=== PATIENT | male | born 1970 | race Caucasian/White ===

== ENCOUNTER 2017-10-11 07:35 | Day surgery (SDC) | payer BC, SELFPAY ==
[2017-10-11] VITALS (13 sets, daily range): BP systolic 106–131; BP diastolic 71–92; PULSE 55–74; RESP 16–18; TEMP 36.6–36.8; O2SAT 95–100; BMI 34.0
[2017-10-11 08:12] LABS: Basophils % 0.4 % (0.1-2.0); Eosinophils # 0.2 K/mm3 (0.0-0.4); Eosinophils % 1.9 % (0.1-12.0); Hematocrit 43.8 % (42.0-52.0); Hemoglobin 14.7 g/dL (14.1-18.0); Lymphocytes # 2.7 K/mm3 (0.7-4.5); Lymphocytes % 30.9 K/mm3 (10-50); Mean Corpuscular HGB Conc 33.6 g/dL (31.8-35.4); Mean Corpuscular Hemoglobin 30.7 pg (27.0-31.2); Mean Corpuscular Volume 91.4 fl (80-94); Mean Platelet Volume 7.5 fl (7.4-10.4); Monocytes # 0.4 K/mm3 (0.1-1.0); Monocytes % 4.9 % (1.7-9.3); Neutrophils # 5.5 K/mm3 (1.8-7.8); Neutrophils % 61.9 % (37.0-80.0); Platelet Count 190 K/mm3 (142-424); Red Cell Distribution Width 13.3 % (11.5-17.5); White Blood Count 8.8 K/mm3 (4.8-10.8)
[2017-10-11 08:20] LABS: Anion Gap 10.7 mEq/L (5-15); Blood Urea Nitrogen 20 mg/dL (7-18); Carbon Dioxide 27 mmol/L (21.0-32.0); Chloride 106 mmol/L (98-107); Creatinine Clearance Estimated 156 mL/min (0-300); Creatinine,Serum 0.94 mg/dL (0.70-1.30); Estimated Glomerular Filt Rate 86 ml/min (>60); GFR (African American) 104 ML/MIN (>60); Glucose 97 mg/dL (74-106); Potassium 3.7 mmoL/L (3.5-5.1); Sodium 140 mmol/L (136-145)
--- NOTE | 2017-10-11 09:00 | IR_ITS ---
CARDIAC CATHETERIZATION DATE OF CATHETERIZATION:10/11/2017 10:12 AM PROCEDURES: 1. Left heart catheterization 2. Left ventriculogram 3. Selective coronary angiogram INDICATION FOR TEST: 1. Recent ST elevation myocardial infarction 2. Known coronary artery disease 3. Recurrent angina pectoris Informed consent was obtained prior to the procedure. COMPLICATIONS: None ESTIMATED BLOOD LOSS: Less than 10 ml. TECHNIQUE: One percent lidocaine used to anesthetize the right anterior aspect of the wrist. The right radial artery was accessed via the Seldinger technique. A 6 Divehi sheath was placed in the right radial artery. 2.5 mg of verapamil, 800 mcg of nitroglycerin and 5000 U Heparin were given through the arterial sheath. The trap catheter was also used to perform left heart catheterization and left ventriculography. At the end of the procedure the patient was transferred to the post-op holding area in stable condition for arterial sheath removal. ANGIOGRAPHIC RESULTS: 1. The left main artery normal 2. The left anterior descending artery is normal 3. The circumflex artery is a large dominant vessel and has proximal 30% stenoses with mild luminal irregularities in the large obtuse marginal artery 4. The right coronary artery is a nondominant yet still large vessel and has proximal 20% stenoses. A stent in the distal right coronary artery is widely patent with excellent proximal and distal transitioning. The stent supplies a small amount of distal myocardium 5. The SYED ventriculogram reveals normal 65% 6. The left ventricular end-diastolic pressure mildly elevated at 20 mmHg IMPRESSION: 1. Coronary artery disease as described above 2. Patent stent in the nondominant distal right coronary artery 3. Normal ejection fraction 4. Mildly elevated LVEDP PLAN: 1. Continue medical management 2. Evaluation of noncardiac chest pain
== END 2017-10-11 14:34 | disposition home or self-care (01) ==
LOC: CATHLAB 07:38
PROVIDERS: PCP Internal Medicine Adolescent Medicine; Visit Provider Internal Medicine
DX: I25.119 Atherosclerotic heart disease of native coronary artery with unspecified angina pectoris (principal); Z95.5 Presence of coronary angioplasty implant and graft; I11.9 Hypertensive heart disease without heart failure; R07.9 Chest pain, unspecified
CPT/HCPCS: 80048; 85025; 93458; 99152; C1725; C1769; J1644; Q9967

== ENCOUNTER → 2017-11-04 08:11 | Outpatient (POV) | payer BC, SELFPAY | PROVIDERS: PCP Internal Medicine Adolescent Medicine; Visit Provider Nurse Practitioner Acute Care | DX: Z00.00 Encounter for general adult medical examination without abnormal findings (principal) ==

== ENCOUNTER 2018-03-21 23:14 | Observation (INO) ==
[2018-03-21 23:36] LABS: Basophils # 0.1 K/mm3 (0-0.2); Basophils % 0.5 % (0.1-2.0); Eosinophils # 0.1 K/mm3 (0.0-0.4); Eosinophils % 0.9 % (0.1-12.0); Hematocrit 50.6 % (42.0-52.0); Hemoglobin 16.5 g/dL (14.1-18.0); Lymphocytes # 2.1 K/mm3 (0.7-4.5); Lymphocytes % 23.1 K/mm3 (10-50); Mean Corpuscular HGB Conc 32.6 g/dL (31.8-35.4); Mean Corpuscular Hemoglobin 29.5 pg (27.0-31.2); Mean Corpuscular Volume 90.3 fl (80-94); Mean Platelet Volume 7.8 fl (7.4-10.4); Monocytes # 0.5 K/mm3 (0.1-1.0); Neutrophils # 6.4 K/mm3 (1.8-7.8); Neutrophils % 70.3 % (37.0-80.0); Platelet Count 211 K/mm3 (142-424); Red Cell Distribution Width 12.8 % (11.5-17.5); White Blood Count 9.2 K/mm3 (4.8-10.8)
[2018-03-22] LABS: Alanine Aminotransferase 32 U/L (12-78); Albumin Level 3.8 gm/dL (3.4-5.0); Alkaline Phosphatase 71 U/L (46-116); Amylase 41 U/L (25-125); Anion Gap 7.8 mEq/L (5-15); Aspartate Amino Transferase 16 U/L (15-37); Bilirubin,Direct 0.1 mg/dL (0.0-0.2); Bilirubin,Indirect 0.5 mg/dL (0.0-0.9); Bilirubin,Total 0.6 mg/dL (0.2-1.0); Blood Urea Nitrogen 19 mg/dL (7-18); Carbon Dioxide 28 mmol/L (21.0-32.0); Chloride 109 mmol/L (98-107); Glucose 108 mg/dL (74-106); Lipase 145 u/L (73-393); Potassium 4.8 mmoL/L (3.5-5.1); Sodium 140 mmol/L (136-145); T4 (Thyroxine) 6.5 ug/dl (4.7-13.3); Thyroid Stimulating Hormone 1.56 uIU/ml (0.358-3.740); Total Protein,Serum 7.7 gm/dL (6.4-8.2)
--- NOTE | 2018-03-22 00:54 | Emergency Department Note ---
ED Disposition Clinical Impression: A-fib Qualifiers: Atrial fibrillation type: unspecified Qualified Code(s): I48.91 - Unspecified atrial fibrillation Disposition: Admitted As Inpatient Condition on Discharge: Good Referrals: Otoneil Asencio MD [Primary Care Provider] - - Critical Care Critical Care Time: No Attestation: On 03/21/18, the high probability of a clinically significant, sudden or life threatening deterioration of the following system(s) required my full and direct attention, intervention and personal management. The time I documented below is in addition to time spent performing reported procedures but includes the following listed in this critical care notation. Medical Decision Making - Medical Records Medical records reviewed: Yes: I reviewed the patient's medical records. - Jah Inquiry Pt receiving controlled substance: No Vital Signs: 03/21/18 23:15 03/21/18 23:45 03/22/18 00:19 Temperature 97.8 F Temperature Source Oral Pulse Rate [Right Radial] 134 H 95 H 92 H Respiratory Rate 18 16 14 Blood Pressure [Right Arm] 109/96 110/70 126/55 Blood Pressure Mean [Right Arm] 100 83 78 Blood Pressure Source [Right Arm] Automatic Cuff Automatic Cuff Automatic Cuff Blood Pressure Position [Right Arm] Sitting Sitting Sitting 02 Sat by Pulse Oximetry 96 96 95 Oxygen Delivery Method Room Air Room Air Room Air - Lab Data Lab results reviewed: Yes: I reviewed the patient's lab results. Lab Results 03/21/18 23:25: WBC 9.2, RBC 5.60, Hgb 16.5, Hct 50.6, MCV 90.3, MCH 29.5, MCHC 32.6, RDW 12.8, Plt Count 211, MPV 7.8, Neut % (Auto) 70.3, Lymph % (Auto) 23.1 , [place] % (Auto) 5.0, Eos % (Auto) 0.9, Baso % (Auto) 0.5, Neut # (Auto) 6.4, Lymph # (Auto) 2.1, [place] # (Auto) 0.5, Eos # (Auto) 0.1, Baso # (Auto) 0.1 03/21/18 23:25: Sodium 140, Potassium 4.8, Chloride 109 H, Carbon Dioxide 28, Anion Gap 7.8, BUN 19 H, Creatinine 0.99, Estimated Creat Clear 148, Estimated GFR 81, Est GFR ( Amer) 98, Glucose 108 H, Calcium 9.0, Total Bilirubin 0.6, Direct Bilirubin 0.1, Indirect Bilirubin 0.5, AST 16, ALT 32, Alkaline Phosphatase 71, Troponin I < 0.02, Total Protein 7.7, Albumin 3.8, Amylase 41, Lipase 145, TSH 1.56, Thyroxine (T4) 6.5 Result diagrams: 03/21/18 23:25 03/21/18 23:25 Orders (Tests/Meds): ED MEDICATIONS Generic Name Dose Route Start Last Admin Trade Name Freq PRN Reason Stop Dose Admin Diltiazem HCl 100 mg/ Sodium 100 mls @ 10 mls/hr 03/21/18 23:45 03/21/18 23: 37 Chloride IV 04/20/18 23:44 10 mls/hr .Q10H PEE Administration Discontinued Medications Generic Name Dose Route Start Last Admin Trade Name Freq PRN Reason Stop Dose Admin Aspirin 243 mg 03/21/18 23:26 03/21/18 23:33 Aspirin 81mg Chewable Tablet PO 03/21/18 23:27 243 mg ONCE ONE Administration Diltiazem HCl 10 mg 03/21/18 23:28 03/21/18 23:37 Cardizem 25mg/5ml Vial IV 03/21/18 23:29 10 mg ONCE ONE Administration ORDERS Category Date Time Status XR chest portable Stat Exams 03/21/18 23:30 Taken - Radiology Data #1 Image(s): Chest Image Reviewed: Yes I reviewed the patient's radiology image Preliminary Findings: Normal/NAD - ECG Data Tracing #1 I reviewed this ECG and interpreted as documented below: Arrhythmias present: afib Ischemic changes: non-specific ST-T wave changes - Physician Consults Physician Consulted: grey Reason -: Pt condition Arrhythmia/Palpitations HPI - General Chief Complaint: Chest Pain Stated Complaint: chest pain Time Seen by Provider: 03/21/18 23:20 Mode of Arrival: Ambulatory Source of Information: Patient, Spouse, Medical Record Limitations: No Limitations - History of Present Illness HPI narrative: acute onset of fast and irreg ht rate tonight - has hx of cad with stents and no neuro sx or syncope complaint: rapid heart beat, irregular heart beat Onset (ago): hour(s) Duration: constant Severity: moderate Context: occurred during rest Associated symptoms: chest pain Treatments prior to arrival: beta-genesis - Related Data Home Medications Medication Instructions Recorded Confirmed aspirin 81 mg tablet,delayed 81 mg PO QDAY 10/07/17 03/21/18 release atorvastatin 40 mg tablet 40 mg PO QDAY 10/07/17 03/21/18 metoprolol succinate ER 25 mg 25 mg PO QDAY tab 10/07/17 03/21/18 tablet,extended release 24 hr tamsulosin 0.4 mg capsule 0.4 mg PO QDAY 10/07/17 03/21/18 Ticagrelor [Brilinta 90mg Tablet] 90 mg PO BID 03/21/18 03/21/18 Allergies Allergy/AdvReac Type Severity Reaction Status Date / Time niacin Allergy Unknown I-RASH Verified 03/21/18 23:32 [From NIASPAN EXTENDED-RELEASE] [facility] History I have reviewed the patient's past medical history: Yes Medical History: Reports:: Coronary Artery Disease, Gastroesophageal Reflux Disease(GERD), Hyperlipidemia, Hypertension Denies:: Cancer, Diabetes Mellitus Type 1, Diabetes Mellitus Type 2, Internal Pacemaker, MRSA, Seizures Other Surgeries: Yes: Angioplasty, Coronary Stent, Other (back surgery, shoulder surgery). No: Pacemaker Amputation: No Fractures: No - Social History Smoking Status: Never smoker Alcohol Intake: never Occupational Status: employed - Psychiatric History Expresses thoughts of harming self/others: None Suicide Plan Description: No Plan Family Hx:: Unable to obtain, Coronary Artery Disease ROS Obtained: Yes All systems reviewed & no additional complaints - Constitutional Constitutional: Denies fever(s) - Eyes Eyes: Denies change in vision - ENT Ears, Nose, Mouth, and Throat: Denies sore throat - Cardiovascular Cardiovascular: Reports chest pain, Denies dyspnea, Reports rapid heart rate - Respiratory Respiratory: No cough - Gastrointestinal Gastrointestingal: Denies: abdominal pain - Genitourinary Male Genitourinary: Denies hematuria - Integumentary/Breasts Skin/Breast: Denies rash - Neurologic Neurologic: Denies headache(s), Denies seizure-like activity Physical Exam - General General appearance: alert, in no apparent distress - Head Head exam: normocephalic - Eye Eye exam: Present: PERRL, EOMI - ENT ENT exam: Present: mucous membranes moist - Neck Neck exam: Present: trachea midline - Respiratory Respiratory exam: Present: normal lung sounds bilaterally. Absent: respiratory distress - Cardiovascular Cardiovascular exam: Present: tachycardia, irregular rhythm, systolic murmur - Extremities Exam Extremities exam: Absent: calf tenderness - Neurological Exam Neurological exam: Present: alert, oriented X3, CN II-XII intact - Psychiatric Psychiatric exam: Present: normal affect - Skin Skin exam: Absent: rash
[2018-03-22 07:53] LABS: Basophils # 0.1 K/mm3 (0-0.2); Basophils % 0.6 % (0.1-2.0); Eosinophils # 0.1 K/mm3 (0.0-0.4); Eosinophils % 1.5 % (0.1-12.0); Hematocrit 47.2 % (42.0-52.0); Hemoglobin 15.5 g/dL (14.1-18.0); Lymphocytes # 2.8 K/mm3 (0.7-4.5); Lymphocytes % 28.3 K/mm3 (10-50); Mean Corpuscular HGB Conc 32.8 g/dL (31.8-35.4); Mean Corpuscular Hemoglobin 29.6 pg (27.0-31.2); Mean Corpuscular Volume 90.3 fl (80-94); Mean Platelet Volume 7.7 fl (7.4-10.4); Monocytes # 0.5 K/mm3 (0.1-1.0); Monocytes % 4.6 % (1.7-9.3); Neutrophils # 6.4 K/mm3 (1.8-7.8); Neutrophils % 65.1 % (37.0-80.0); Platelet Count 210 K/mm3 (142-424); Red Blood Count 5.23 M/mm3 (4.60-6.20); Red Cell Distribution Width 12.8 % (11.5-17.5); White Blood Count 9.8 K/mm3 (4.8-10.8)
[2018-03-22 07:59] LABS: Anion Gap 8.9 mEq/L (5-15); Blood Urea Nitrogen 20 mg/dL (7-18); Calcium 8.4 mg/dL (8.5-10.1); Carbon Dioxide 25 mmol/L (21.0-32.0); Chloride 113 mmol/L (98-107); Glucose 122 mg/dL (74-106); Potassium 3.9 mmoL/L (3.5-5.1); Sodium 143 mmol/L (136-145)
--- NOTE | 2018-03-22 09:08 | Pharmacy Consult Notes ---
[facility] Pharmacy VTE Monitoring - Patient Demographics Admission date: 03/21/18 Report Date: 03/22/18 Time: 09:08 Allergies/Adverse Reactions: Patient Allergies niacin [From NIASPAN EXTENDED-RELEASE] Allergy (Unknown, Verified 03/21/18 23:32 ) I-RASH Height: 1.83 m Weight: 114.759 kg Patient Problems: Current Active Problems A-fib (Acute) - VTE Risk Labs: VTE Related Lab Results Hgb 15.5 g/dL (14.1-18.0) 03/22/18 07:16 Hct 47.2 % (42.0-52.0) 03/22/18 07:16 Plt Count 210 K/mm3 (142-424) 03/22/18 07:16 BUN 20 mg/dL (7-18) H 03/22/18 07:16 Creatinine 0.84 mg/dL (0.70-1.30) 03/22/18 07:16 Estimated Creat Clear 176 mL/min (0-300) 03/22/18 07:16 VTE Score: 1 VTE Risk Level: Very Low Risk - Prophylaxis VTE Prophylaxis Ordered?: Yes Types of VTE Prophylaxis: TEDS Knee High, Pharmacological Pharmacologic Type: Other (BRILINTA) - VTE Diagnosis Confirmed Treatment or plan recommended: Continue Current Treatment
--- NOTE | 2018-03-22 09:41 | History & Physical Report ---
*Admission Date: 03/21/18 *Chief complaint: Palpitations and fatigue *History of present illness: 47-year-old white male with cardiac disease, status post stent placement in April 2017, who has done exceedingly well since that time, has been on beta- genesis, statin therapy, aspirin and Brilinta therapy, who went to work yesterday evening and when he arrived at his workplace began to feel badly, tired and fatigued along with palpitations and a feeling of shortness of air with exertion. Returned home, and his noticed that his pulse was very irregular. Brought to the emergency department where he was found to be in new onset rapid atrial fibrillation. Cardizem infusion was given which slowed his rate down into the 90s, transferred to the stepdown unit for further evaluation. He states this morning he feels much improved to the lower heart rate but continues to be conscious of an occasional irregular beat. Denies recent chest pain, GI symptoms or feet swelling. Denies neurologic symptoms. [facility] History I have reviewed the patient's past medical history: Yes Medical History: Reports:: Coronary Artery Disease, Gastroesophageal Reflux Disease(GERD), Hyperlipidemia, Hypertension Denies:: Cancer, Diabetes Mellitus Type 1, Diabetes Mellitus Type 2, Internal Pacemaker, MRSA, Seizures Other Medical History: Denies: Hypothyroidism Other Surgeries: Yes: Angioplasty, Coronary Stent, Other (back surgery, shoulder surgery). No: Pacemaker Amputation: No Fractures: No - *Social History Educational Level: Attended College Smoking Status: Never smoker Alcohol Intake: never Occupational Status: employed Household Members: spouse - Psychiatric History Expresses thoughts of harming self/others: None Suicide Plan Description: No Plan *Family Hx:: Unable to obtain, Coronary Artery Disease Review of Systems - Review of Systems Review of systems:: pertinent systems reviewed and negative unless documented below - Constitutional Reports fatigue, Denies anorexia, Denies body ache(s), Denies chills - Eyes Denies blind spots, Denies blurry vision, Denies change in vision - ENT Denies abnormal hearing, Denies bleeding gums, Denies change in voice, Denies difficulty swallowing - *Cardiovascular Reports shortness of breath with activity, Reports irregular heart rhythm, Reports rapid, pounding, or irregular heartbeat, Denies chest pain, Denies chest pain at rest, Denies chest pain with activity, Denies leg pain with activity, Denies excessive sweating, Denies shortness of breath, Denies leg swelling, Denies lightheadedness, Denies shortness of breath when lying down - *Respiratory Denies change in phlegm color, Denies chest congestion, Denies cough, Denies excessive phlegm production - *Gastrointestinal Denies abdominal pain, Denies belching, Denies change in bowel habits, Denies coffee ground vomit, Denies constipation - *Genitourinary Denies difficulty urinating - *Musculoskeletal Denies abnormal walking, Denies joint pain - *Neurologic Denies abnormal walking, Denies abnormal hearing, Denies unsteadiness, Denies dizziness, Denies headache(s), Denies lack of coordination, Denies other visual disturbances, Denies seizure-like activity - Psychiatric Denies abnormal sleep pattern - Endocrine Reports rapid, pounding, or irregular heartbeat, Denies cold intolerance, Denies excessive sweating - Hematologic/Lymphatic Reports easy bleeding, Denies easy bruising, Denies enlarged lymph nodes - Allergic/Immunologic Denies GI upset with certain foods Meds Home Medications Medication Instructions Recorded Confirmed Type aspirin 81 mg tablet,delayed 81 mg PO DAILY 10/07/17 03/22/18 History release atorvastatin 40 mg tablet 40 mg PO HS 10/07/17 03/22/18 History metoprolol succinate ER 25 mg 25 mg PO DAILY tab 10/07/17 03/22/18 History tablet,extended release 24 hr tamsulosin 0.4 mg capsule 0.4 mg PO DAILY 10/07/17 03/22/18 History Ticagrelor [Brilinta 90mg Tablet] 90 mg PO BID 03/21/18 03/22/18 History Allergies Allergy/AdvReac Type Severity Reaction Status Date / Time niacin Allergy Unknown I-RASH Verified 03/21/18 23:32 [From NIASPAN EXTENDED-RELEASE] Exam Vital signs and Labs for Last 24 Hours: Temp Pulse Resp BP Pulse Ox 97.6 F 66 16 81/59 93 L 03/22/18 07:30 03/22/18 08:00 03/22/18 08:00 03/22/18 08:00 03/22/18 08:00 Laboratory Results - last 24 hr 03/21/18 23:25: WBC 9.2, RBC 5.60, Hgb 16.5, Hct 50.6, MCV 90.3, MCH 29.5, MCHC 32.6, RDW 12.8, Plt Count 211, MPV 7.8, Neut % (Auto) 70.3, Lymph % (Auto) 23.1 , [place] % (Auto) 5.0, Eos % (Auto) 0.9, Baso % (Auto) 0.5, Neut # (Auto) 6.4, Lymph # (Auto) 2.1, [place] # (Auto) 0.5, Eos # (Auto) 0.1, Baso # (Auto) 0.1 03/21/18 23:25: Sodium 140, Potassium 4.8, Chloride 109 H, Carbon Dioxide 28, Anion Gap 7.8, BUN 19 H, Creatinine 0.99, Estimated Creat Clear 148, Estimated GFR 81, Est GFR ( Amer) 98, Glucose 108 H, Calcium 9.0, Total Bilirubin 0.6, Direct Bilirubin 0.1, Indirect Bilirubin 0.5, AST 16, ALT 32, Alkaline Phosphatase 71, Troponin I < 0.02, Total Protein 7.7, Albumin 3.8, Amylase 41, Lipase 145, TSH 1.56, Thyroxine (T4) 6.5 03/22/18 01:30: Troponin I < 0.02 03/22/18 04:15: Troponin I < 0.02 03/22/18 07:16: WBC 9.8, RBC 5.23, Hgb 15.5, Hct 47.2, MCV 90.3, MCH 29.6, MCHC 32.8, RDW 12.8, Plt Count 210, MPV 7.7, Neut % (Auto) 65.1, Lymph % (Auto) 28.3 , [place] % (Auto) 4.6, Eos % (Auto) 1.5, Baso % (Auto) 0.6, Neut # (Auto) 6.4, Lymph # (Auto) 2.8, [place] # (Auto) 0.5, Eos # (Auto) 0.1, Baso # (Auto) 0.1 03/22/18 07:16: Sodium 143, Potassium 3.9, Chloride 113 H, Carbon Dioxide 25, Anion Gap 8.9, BUN 20 H, Creatinine 0.84, Estimated Creat Clear 176, Estimated GFR 98, Est GFR ( Amer) 119 D, Glucose 122 H, Calcium 8.4 L, Magnesium 1.9, Troponin I < 0.02 I & O for Last 24 hours: Intake & Output 03/19/18 03/20/18 03/21/18 03/22/18 11:59 11:59 11:59 11:59 Intake Total 807 / 807 Balance 807 / 807 Weight 253 lb Narrative: Patient's alert, pleasant, oriented 3. Knowledgeable about his current condition and history. ENT exam clear. No JVD, no scleral icterus. Quiet precordium, heart rate in the mid 60s, irregular, no murmurs. Abdomen soft and nontender, no hepatosplenomegaly. No edema or clubbing. Moves all extremities well, cranial nerves are intact. H&P: Result - Labs Labs: Short CBC 03/21/18 03/22/18 Range/Units 23:25 07:16 WBC 9.2 9.8 (4.8-10.8) K/mm3 Hgb 16.5 15.5 (14.1-18.0) g/dL Hct 50.6 47.2 (42.0-52.0) % Plt Count 211 210 (142-424) K/mm3 BMP 03/21/18 03/22/18 23:25 07:16 Sodium 140 143 Potassium 4.8 3.9 Chloride 109 H 113 H Carbon Dioxide 28 25 BUN 19 H 20 H Creatinine 0.99 0.84 Glucose 108 H 122 H Calcium 9.0 8.4 L Cardiac Enzymes 03/21/18 03/22/18 03/22/18 Range/Units 23:25 01:30 04:15 Troponin I < 0.02 < 0.02 < 0.02 (0.00-0.06) ng/ml 03/22/18 Range/Units 07:16 Troponin I < 0.02 (0.00-0.06) ng/ml Liver Function 03/21/18 Range/Units 23:25 Total Bilirubin 0.6 (0.2-1.0) mg/dL Direct Bilirubin 0.1 (0.0-0.2) mg/dL AST 16 (15-37) U/L ALT 32 (12-78) U/L Alkaline Phosphatase 71 (46-116) U/L Albumin 3.8 (3.4-5.0) gm/dL Assessment and Plan (1) New onset atrial fibrillation Current visit: Yes Status: Acute Category: Medical Code(s): I48.91 - Unspecified atrial fibrillation Rate has been controlled with intravenous Cardizem. Switch over to p.o. Cardizem, discontinue drip. Echocardiogram today to quantify left atrial size and cardiac function. Start Xarelto therapy. Patient might be a candidate to stop Brilinta since he had a stent placed almost 11 months ago so that we can avoid dual anticoagulation therapy. Close observation on telemetry. Thyroid labs and magnesium normal.
[2018-03-23 07:41] VITALS: BP 116/80
--- NOTE | 2018-03-23 08:20 | Discharge Summary ---
General - General Admission date:: 03/22/18 Discharge date: 03/23/18 HPI HPI: 47-year-old white male with cardiac disease, status post stent placement in April 2017, who has done exceedingly well since that time, has been on beta- genesis, statin therapy, aspirin and Brilinta therapy, who went to work yesterday evening and when he arrived at his workplace began to feel badly, tired and fatigued along with palpitations and a feeling of shortness of air with exertion. Returned home, and his noticed that his pulse was very irregular. Brought to the emergency department where he was found to be in new onset rapid atrial fibrillation. Cardizem infusion was given which slowed his rate down into the 90s, transferred to the stepdown unit for further evaluation. He states this morning he feels much improved to the lower heart rate but continues to be conscious of an occasional irregular beat. Denies recent chest pain, GI symptoms or feet swelling. Denies neurologic symptoms. Hospital Course Hospital Course: Patient was admitted, ruled out for myocardial infarction, electrolytes were unremarkable including magnesium levels, TSH was also normal. Patient was treated initially with Cardizem infusion and then transferred over to p.o. Cardizem which did a very nice job of lowering his heart rate into the 70s. Overnight he had spells of sinus rhythm interspersed with some intermittent drill fibrillation but this morning has been consistently in sinus rhythm most of the morning. He feels much better and wishes to be discharged home. I think that is reasonable. Plan will be as follows: 1. Outpatient echocardiogram tomorrow. 2. Place on Xarelto for anticoagulation and stop Brilinta. 3. Diltiazem prescription for rate control. 4. Follow-up with cardiology this week as an outpatient for further evaluation of medication issues once echocardiogram has been done. 5. I have advised him to be off work until cleared by cardiology to return. Objective Vital signs: Temp Pulse Resp BP Pulse Ox 98.1 F 87 16 116/80 99 03/23/18 07:40 03/23/18 07:40 03/23/18 07:40 03/23/18 07:40 03/23/18 07:40 Narrative: This morning patient is awake, alert. Pleasant. Pulse rate regular, no murmurs. Lungs clear. No edema. Good pulses in all extremities. DS: Diagnosis - Discharge Diagnosis (1) New onset atrial fibrillation Status: Acute Discharge Plan - Patient Discharge Instructions ACTIVITY: Continue current activity DIET: continue same diet Additional Instructions: No work till seen by cardiology. Patient Instructions: Atrial Fibrillation, Diltiazem - Follow up Plan Follow up with: Giles Mcege PA [Physician [employer]ural [employer]fter] - 2 days Disposition: Home, Self-Senior Care Medications: Home Medications Medication Instructions Recorded Confirmed Type aspirin 81 mg tablet,delayed 81 mg PO DAILY 10/07/17 03/22/18 History release atorvastatin 40 mg tablet 40 mg PO HS 10/07/17 03/22/18 History metoprolol succinate ER 25 mg 25 mg PO DAILY tab 10/07/17 03/22/18 History tablet,extended release 24 hr tamsulosin 0.4 mg capsule 0.4 mg PO DAILY 10/07/17 03/22/18 History Ticagrelor [Brilinta 90mg Tablet] 90 mg PO BID 03/21/18 03/22/18 History Prescriptions/Medication Reconciliation: New dilTIAZem HCl [Diltiazem 180mg 24Hr ER Cap] 180 mg PO DAILY #30 cap.er.24h Rivaroxaban [Xarelto 15mg tablet] 15 mg PO BID #14 tab Continue aspirin 81 mg tablet,delayed release 81 mg PO DAILY atorvastatin 40 mg tablet 40 mg PO HS tamsulosin 0.4 mg capsule 0.4 mg PO DAILY metoprolol succinate ER 25 mg tablet,extended release 24 hr 25 mg PO DAILY tab Discontinued Ticagrelor [Brilinta 90mg Tablet] 90 mg PO BID
== END 2018-03-23 08:46 | disposition home or self-care (01) ==
LOC: ER 23:14 → 2ND 23:56 → INTOOBSV 03-22 01:20 → 2ND 03-22 01:24
PROVIDERS: ADMIT Emergency Medicine; ATTEND Internal Medicine Adolescent Medicine
CPT/HCPCS: 36415; 71010; 71045; 80048; 80076; 82150; 83690; 83735; 84436; 84443; 84484; 85025; 93005; 96365; 96366; 96375; 99285; G0378

== ENCOUNTER → 2018-03-24 12:40 | Outpatient (CLI) | payer BC, SELFPAY ==
--- NOTE | 2018-03-24 12:51 | CA_ITS ---
PROCEDURE: 2-D M-mode and color Doppler study INDICATIONS FOR THE TEST: Chest pain COPD Heart Murmur Tobacco Smoking Palpitations Fatigue Syncope Edema Hypertension+Diabetes Mellitus Rheumatic Fever SOB+DURANT Obesity+Hyperlipidemia+ Family History HD Additional History CAD,STENT, ANGIOPLASTY, CA PATIENT INFORMATION HEIGHT:72 WEIGHT:253 GENDER: Male B/P: 2-D/M-MODE INTERPRETATION: 2-D MEASUREMENTS OBSERVED VALUES IN CMS Right Ventricular Dimension (RVDd) 2.5 Interventricular Septum (Thickness)(IVsd) 1.1 Left Ventricular Internal Dimensions(LVIDd) 4.8 Left Ventricular Posterior Wall (Thickness)(LVPWd) 1.0 Aortic Root 3.8 Aortic Cusp Separation 2.3 Left Atrial Dimensions (LAD) 3.9 2D 1. Left atrium is qualitatively mildly enlarged, left ventricle is normal size, mild concentric left ventricular hypertrophy, visually estimated ejection fraction 55% with no obvious regional wall motion abnormality. 2. The right atrium and right ventricle are normal size and contractility. 3. The aortic valve is minimally thickened and fibrosed. 4. The mitral and tricuspid valve are grossly normal. 5. The pulmonic valve is poorly visualized. 6. No significant pericardial effusion noted. DOPPLER INTERROGATION: Doppler interrogation of the aortic, mitral and tricuspid valvular presence of mild mitral and tricuspid regurgitation, tricuspid and jet velocity is insufficient for calculation of the right ventricular systolic pressure, Doppler evidence of impaired relaxation seen. CONCLUSION: 1. Mildly enlarged left atrium, normal left ventricular size, mild concentric left ventricular hypertrophy, visually estimated ejection fraction 55% with no obvious regional wall motion abnormality, Doppler evidence of impaired LV relaxation seen. 2. Mild mitral and tricuspid regurgitation 3. No significant pericardial effusion noted.
== END ==
PROVIDERS: PCP Internal Medicine Adolescent Medicine; Referring Provider Internal Medicine; Visit Provider Internal Medicine Adolescent Medicine
DX: I48.0 Paroxysmal atrial fibrillation (principal)
CPT/HCPCS: 93306

== ENCOUNTER → 2019-08-10 10:20 | Outpatient (CLI) | payer BC, SELFPAY ==
[2019-08-10 10:30] LABS: Microscopic, Urine URINE MICROSCOPIC (MICROSCOPIC)
--- NOTE | 2019-08-10 10:49 | XR_ITS ---
PROCEDURE: XR CHEST 2V CLINICAL HISTORY: PSORIASIS, [employer] COMPARISON: CXR1 CHEST-PORTABLE from 05/04/2017 CXR CHEST(2 VIEWS-NOT PORTABLE) from 06/16/2017 CXR1VP XR chest portable from 03/21/2018 FINDINGS: The cardiomediastinal silhouette and pulmonary vascularity are within normal limits. The lungs are clear without infiltrates, suspicious nodules, or pleural effusions. No acute bony abnormalities. IMPRESSION: No acute findings. Dictated by: Eduard Adames MD 08/10/2019 19:58 Electronically signed by Eduard Adames MD in [place] 08/10/2019 19:58
[2019-08-10 10:52] LABS: Appearance,Urine CLEAR (Clear); Bilirubin,Urine Negative (Negative); Blood, Urine Negative (Negative); Color,Urine YELLOW (Yellow); Glucose,Urine (UA) Negative (Negative); Ketones,Urine Negative (Negative); Leukocyte Esterase,Urine Negative (Negative); Nitrate,Urine Negative (Negative); PH,Urine 5.5 (5.0-8.5); Protein,Urine Negative (Negative); Specific Gravity, Urine >= 1.030 (1.005-1.030); Urobilinogen,Urine 0.2 EU/dl (0.2)
[2019-08-10 11:02] LABS: Basophils % 0.5 % (0.1-2.0); Eosinophils # 0.2 K/mm3 (0.0-0.4); Eosinophils % 1.9 % (0.1-12.0); Hematocrit 46.2 % (42.0-52.0); Lymphocytes # 2.8 K/mm3 (0.7-4.5); Lymphocytes % 33.9 % (10-50); Mean Corpuscular HGB Conc 32.4 g/dL (31.8-35.4); Mean Corpuscular Hemoglobin 29.8 pg (27.0-31.2); Mean Platelet Volume 7.6 fl (7.4-10.4); Monocytes # 0.4 K/mm3 (0.1-1.0); Monocytes % 4.3 % (1.7-9.3); Neutrophils % 59.4 % (37.0-80.0); Platelet Count 246 K/mm3 (142-424); Red Blood Count 5.02 M/mm3 (4.60-6.20); Red Cell Distribution Width 13.4 % (11.5-17.5); White Blood Count 8.4 K/mm3 (4.8-10.8)
[2019-08-10 11:08] LABS: Bacteria,Urine Trace /lpf; Squamous Epithelial Cell,Urine Occasional #/hpf (0-5)
[2019-08-10 12:15] LABS: Alanine Aminotransferase 27 U/L (12-78); Albumin Level 3.7 gm/dL (3.4-5.0); Alkaline Phosphatase 74 U/L (46-116); Anion Gap 13.1 mEq/L (5-15); Aspartate Amino Transferase 14 U/L (15-37); Bilirubin,Direct 0.1 mg/dL (0.0-0.2); Bilirubin,Indirect 0.3 mg/dL (0.0-0.9); Bilirubin,Total 0.4 mg/dL (0.2-1.0); Blood Urea Nitrogen 17 mg/dL (7-18); Calcium 8.8 mg/dL (8.5-10.1); Carbon Dioxide 28 mmol/L (21.0-32.0); Chloride 106 mmol/L (98-107); Chol/HDL Ratio 3.4 (1-3.5); Cholesterol 170 mg/dL (140-200); Creatinine,Serum 0.92 mg/dL (0.70-1.30); Estimated Glomerular Filt Rate 88 ml/min (>60); GFR (African American) 106 ML/MIN (>60); Glucose 83 mg/dL (74-106); HDL Cholesterol 50 mg/dL (27-67); LDL Cholesterol 100 mg/dL (0-130); Potassium 4.1 mmoL/L (3.5-5.1); Sodium 143 mmol/L (136-145); Thyroid Stimulating Hormone 3.69 uIU/ml (0.358-3.740); Total Protein,Serum 7.1 gm/dL (6.4-8.2); Triglycerides 99 mg/dL (30-200); VLDL Cholesterol 20 mg/dL (0-40)
[2019-08-11 06:49] LABS: Hep A Ab, IgM Negative (Negative); Hepatitis B Core Antibody IgM Negative (Negative); Hepatitis B Surface Antigen Negative (Negative)
[2019-08-11 10:32] LABS: HIV Screen 4th Generation wRfx Non Reactive (Non Reactive); Hepatitis C Antibody <0.1 s/co ratio (0.0-0.9)
== END ==
PROVIDERS: Nurse Practitioner Family; Visit Provider Nurse Practitioner
DX: E78.5 Hyperlipidemia, unspecified (principal); I11.9 Hypertensive heart disease without heart failure; I25.10 Atherosclerotic heart disease of native coronary artery without angina pectoris; I48.0 Paroxysmal atrial fibrillation
CPT/HCPCS: 36415; 71046; 80048; 80061; 80074; 80076; 81001; 84439; 84443; 85025; 86480; 86703; G0432

== ENCOUNTER → 2019-08-14 07:07 | Outpatient (CLI) | payer BC, SELFPAY ==
[2019-08-19 15:29] LABS: QuantiFERON-TB Gold Plus Negative (Negative)
== END ==
PROVIDERS: Visit Provider Nurse Practitioner
DX: L40.0 Psoriasis vulgaris (principal); Z79.899 Other long term (current) drug therapy
CPT/HCPCS: 86480

== ENCOUNTER → 2019-08-24 07:07 | Outpatient (CLI) | payer BC, SELFPAY ==
--- NOTE | 2019-08-24 | CA_ITS ---
APPROVED REPORT Exam: Exercise Treadmill Technologist: Holly Haley Ht: 6 ft 0 in Wt: 280 lbs BSA: 2.46 m2 HR: 68 bpm BP: 123/82 mmHg Indications: Shortness of Air Medical History Medications: Aspirin,,,,, Losartan,,,,, Atorvastatin,,,,, Stress Test Details Test: Dionicio HR Resting HR: 73 bpm Max Heart Rate (APMHR): 172 bpm Max HR Achieved: 169 bpm Target HR (85% APMHR): 146 bpm % of APMHR: 98 Recovery HR: 93 bpm BP Resting BP: 123.0/82.0 mmHg Max BP: 169.0/89.0 mmHg Recovery BP: 131.0/84.0 mmHg ECG Clinical Exercise duration: 09:59 min Highest Stage Achieved: Stage 0: 1.7 mph at 0% grade. Exercise capacity: 12.8 METs Stress ECG Conclusion Resting ECG: Sinus rhythm Dionicio Protocol complete. Patient exercised 09:59. Test stopped due to shortness of breath and leg fatigue. Symptoms: No chest pain. Patient was short of breath at peak exercise and leg fatigue. Resolved in recovery. Arrhythmias/Ectopy: 2 episodes of [address]ricular couplets. ST-T Changes: less than 1.[address] depression. Conclusion: Images to follow. Test Summary . . . . . . . . . . . Cardiolite injected Stop exercise at 09:59 . . . . . . . . Electronically signed by : José Miguel Calderon, 08/25/2019 05:40:43
--- NOTE | 2019-08-24 07:11 | NM_ITS ---
APPROVED REPORT Exam: Nuclear Stress Test Indication: CAD, Hx of NE, HTN, High Cholesterol, Family history Patient Location: Outpatient Stress Tech: Holly Haley [place] Tech:Sunita Blanton, ARRT, RT (R)(N) Ht: 6 ft 0 in Wt: 280 lbs HR: 68 bpm BP: 123/82 mmHg BSA: 2.46 m2 History: CAD, Hx of NE, HTN, High Cholesterol, Family history Procedure: Patient exercised on Dionicio protocol 9:59 minutes and sec, resting heart rate 68 bpm, resting blood pressure 123/82 mmHg, with exercise maximum heart rate achived was 169 bpm which is Greater than 85 % of the maximum predicted heart rate and blood pressure was 169/89 mmHg. Test was stopped due to leg fatigue and SOB. Patient denied any complaint of chest pain. Patient has Good exercise capacity, achieved 12.8 METs of workload on treadmill, the blood pressure response to exercise was Adequate. Electrocardiogram Resting EKG shows sinus rhythm nonspecific ST-T changes, with exercise there is less than 1.[address] segment depression noted from the baseline EKG. The EKG portion of the exercise Myoview is negative for ischemia. Cardiac Stress and Resting SPECT Images: Cardiac Stress and Resting SPECT images were obtained using technetium 99m Myoview 29.3 mCi stress and 10.59 mCi at rest. Gated SPECT with analysis of segmental wall motion and calculation of ejection fraction also done. Cardiac stress and resting SPECT images show uniform myocardial activity without segmental perfusion abnormality, computer derived ejection fraction is over 65% with no regional wall motion abnormality, right ventricle is normal size and contractility. Conclusion: 1. The EKG portion of the exercise Myoview is negative for ischemia. Patient has good exercise capacity achieved 12.8 mets of workload on treadmill, the blood pressure response to exercise was adequate, there was no exercise-induced chest discomfort. 2. No scintigraphic evidence of reversible ischemia seen at this level of exercise, computer derived ejection fraction is over 65% with no regional wall motion abnormality, right ventricle is normal size and contractility. 3. Normal exercise Myoview study. Electronically signed by : José Miguel Calderon, 08/25/2019 05:43:21
--- NOTE | 2019-08-24 07:11 | CA_ITS ---
APPROVED REPORT EXAM: Comprehensive 2D, Doppler, and color-flow Echocardiogram Marine Mammal Trainer: Melissa Iglesias CRT Ht: 6 ft 0 in Wt: 282lbs BSA: 2.47 BP: 140/90 mmHg Indications: CAD, AFIB, GERD, CP, HTN, HLD,SOB 2D Dimensions LVOT 2.11 cm (M/F) 1.5-2.5 M-Mode Dimensions RVDd 3.00 cm (0.9-2.6) LVDd 5.36 cm (3.5-5.7) LVDs 3.83 cm (3.5-5.7) IVSd 1.47 cm (0.6-1.1) PWd 0.93 cm (0.6-1.1) EF (Teich) 54.60% FS 28.50% EDV (Teich) 138.90 mL ESV (Teich) 63.10 mL LV Diastology E/A Ratio 0.75 Mitral Valve MV A Velocity 60.00 (40-130 cm/s) Left Ventricle Left atrium is mildly enlarged, left ventricle is normal size, mild concentric left ventricular hypertrophy, visually estimated ejection fraction 55% with no regional wall motion abnormality. Grade 1 diastolic dysfunction seen without tissue Doppler evidence of raise left atrial pressure. Right Ventricle Right atrium and right ventricle mildly enlarged with normal contractility. Aortic Valve Aortic valve is minimally thickened and fibrosed, there is no aortic stenosis or aortic insufficiency. Mitral Valve Mitral valve is grossly normal, there is mild mitral regurgitation. Tricuspid Valve Tricuspid valve is grossly normal, there is mild tricuspid regurgitation. Pulmonic Valve Pulmonic valve is poorly visualized. Great Vessels Aortic root is normal size. Pericardium No significant pericardial effusion noted. Conclusion 1. Mild biatrial enlargement, normal left ventricular size, mild concentric left ventricular hypertrophy, visually estimated ejection fraction of 55% with no regional wall motion abnormality, grade 1 diastolic dysfunction seen without tissue Doppler evidence of raise left atrial pressure. 2. Mildly enlarged right ventricle with normal contractility. 3. Mild mitral and tricuspid regurgitation. 4. No significant pericardial effusion noted. Electronically signed by : José Miguel Calderon, 08/25/2019 06:07:03
--- NOTE | 2019-08-24 07:18 | HMH.ITSHM ---
Current Home Medications as stated by this patient Mary Jo Alonzo or security systems sales representative. []ASA ATORVASTATIN LOSARTAN
== END ==
PROVIDERS: PCP Internal Medicine Adolescent Medicine; Visit Provider Internal Medicine
DX: I25.10 Atherosclerotic heart disease of native coronary artery without angina pectoris (principal); I11.9 Hypertensive heart disease without heart failure; I48.0 Paroxysmal atrial fibrillation; E78.5 Hyperlipidemia, unspecified
CPT/HCPCS: 78452; 93017; 93306; A9502

== ENCOUNTER → 2021-02-23 10:43 | Outpatient (CLI) | payer OTHER, SELFPAY ==
[2021-02-23 11:23] LABS: Basophils % 0.4 % (0.1-2.0); Eosinophils # 0.1 K/mm3 (0.0-0.4); Hematocrit 44.9 % (42.0-52.0); Hemoglobin 14.6 g/dL (14.1-18.0); Lymphocytes # 1.6 K/mm3 (0.7-4.5); Mean Corpuscular HGB Conc 32.5 g/dL (31.8-35.4); Mean Corpuscular Hemoglobin 29.7 pg (27.0-31.2); Mean Corpuscular Volume 91.6 fl (80-94); Monocytes # 0.4 K/mm3 (0.1-1.0); Monocytes % 5.5 % (1.7-9.3); Neutrophils # 5.4 K/mm3 (1.8-7.8); Platelet Count 186 K/mm3 (142-424); Red Blood Count 4.91 M/mm3 (4.60-6.20); Red Cell Distribution Width 13.1 % (11.5-17.5); White Blood Count 7.5 K/mm3 (4.8-10.8)
[2021-02-23 11:53] LABS: Chloride 104 mmol/L (98-107); Potassium 4.6 mmoL/L (3.5-5.1); Sodium 140 mmol/L (136-145)
[2021-02-23 11:55] LABS: Blood Urea Nitrogen 20 mg/dl (9-20); Estimated Glomerular Filt Rate 89 ml/min (>60); GFR (African American) 108 ML/MIN (>60)
[2021-02-23 11:56] LABS: Alanine Aminotransferase 21 U/L (12-78); Albumin Level 4.3 g/dl (3.5-5.0); Alkaline Phosphatase 73 U/L (38-126); Anion Gap 13.6 mEq/L (5-15); Aspartate Amino Transferase 24 U/L (17-59); Bilirubin,Direct 0.3 mg/dl (0.0-0.4); Bilirubin,Indirect 0.7 mg/dL (0.0-0.9); Bilirubin,Unconjugated 0.7 mg/dL (0.0-1.1); Calcium 8.9 mg/dl (8.4-10.2); Carbon Dioxide 27 mmol/L (22.0-30.0); Chol/HDL Ratio 3.1 (1-3.5); Cholesterol 149 mg/dl (140-200); Glucose 93 mg/dl (74-100); HDL Cholesterol 48 mg/dl (40-60); Total Protein,Serum 7.2 g/dl (6.3-8.2); Triglycerides 67 mg/dl (30-150); VLDL Cholesterol 13 mg/dL (0-40)
[2021-02-23 12:08] LABS: Direct LDL Cholesterol 86.45 mg/dL (100-129)
[2021-02-23 12:15] LABS: Free T4 (Free Thyroxine) 0.89 ng/dl (0.78-2.19)
[2021-02-23 12:28] LABS: Coronavirus 19 IgG Antibody Negative (Negative); Coronavirus 19 IgM Antibody Negative (Negative)
== END ==
PROVIDERS: Visit Provider Physician Assistant
DX: I25.10 Atherosclerotic heart disease of native coronary artery without angina pectoris (principal); I11.9 Hypertensive heart disease without heart failure; E78.2 Mixed hyperlipidemia; K21.9 Gastro-esophageal reflux disease without esophagitis; R53.83 Other fatigue; Z11.52 Encounter for screening for COVID-19
CPT/HCPCS: 36415; 80048; 80061; 80076; 84439; 84443; 85025; 86328

== ENCOUNTER → 2021-03-21 08:50 | Outpatient (CLI) | payer OTHER, SELFPAY ==
--- NOTE | 2021-03-21 08:57 | FL_ITS ---
PROCEDURE: FL UPPER GI W AIR FLUORO BARIUM SWALLOW CLINICAL INDICATION: GASTRO REFLUX DISEAS W/ ESOPHAGITIS W/O HEMORRHAGE COMPARISON: CR,RF FL BARIUM SWALLOW from 03/21/2021 FINDINGS: Fluoroscopy time: 1.42 minutes. The esophagus has an unremarkable appearance. No annular constricting lesions filling defects or mucosal abnormalities. No hiatal hernia parent. There was minimal gastroesophageal reflux noted when the patient was placed into the LPO position. The stomach and duodenum are unremarkable. No mass or ulcer apparent. IMPRESSION: Minimal GE reflux. Otherwise negative barium swallow and upper GI. Dictated by: Eduard Adames MD 03/21/2021 10:02 Eduard Adames MD in [place] 03/21/2021 10:02
== END ==
PROVIDERS: PCP Internal Medicine Adolescent Medicine; Visit Provider Internal Medicine Adolescent Medicine
DX: K21.00 Gastro-esophageal reflux disease with esophagitis, without bleeding (principal)
CPT/HCPCS: 74220; 74246

== ENCOUNTER 2021-05-26 14:11 | Day surgery (SDC) | payer OTHER, SELFPAY ==
[2021-05-26] VITALS (9 sets, daily range): BP systolic 103–157; BP diastolic 60–106; PULSE 68–90; RESP 18–20; O2SAT 91–97; BMI 38.7
[2021-05-26 14:14] LABS: Coronavirus 19, PCR Not Detected (NotDetected); Influenza A, PCR Not Detected (NotDetected); Influenza B, PCR Not Detected (NotDetected)
[2021-05-26 14:30] LABS: Basophils # 0.1 K/mm3 (0-0.2); Basophils % 0.6 % (0.1-2.0); Eosinophils # 0.1 K/mm3 (0.0-0.4); Eosinophils % 1.4 % (0.1-12.0); Hematocrit 48.5 % (42.0-52.0); Hemoglobin 16.2 g/dL (14.1-18.0); Lymphocytes # 1.9 K/mm3 (0.7-4.5); Lymphocytes % 19.7 % (10-50); Mean Corpuscular HGB Conc 33.3 g/dL (31.8-35.4); Mean Corpuscular Hemoglobin 30.8 pg (27.0-31.2); Mean Corpuscular Volume 92.3 fl (80-94); Mean Platelet Volume 7.1 fl (7.4-10.4); Monocytes # 0.5 K/mm3 (0.1-1.0); Monocytes % 5.4 % (1.7-9.3); Platelet Count 246 K/mm3 (142-424); Red Blood Count 5.26 M/mm3 (4.60-6.20); White Blood Count 9.5 K/mm3 (4.8-10.8)
[2021-05-26 14:33] LABS: Anion Gap 13.1 mEq/L (5-15); Blood Urea Nitrogen 24 mg/dl (9-20); Calcium 9.5 mg/dl (8.4-10.2); Carbon Dioxide 30 mmol/L (22.0-30.0); Chloride 103 mmol/L (98-107); Estimated Glomerular Filt Rate 54 ml/min (>60); GFR (African American) 66 ML/MIN (>60); Glucose 97 mg/dl (74-100); Potassium 5.1 mmoL/L (3.5-5.1); Sodium 141 mmol/L (136-145)
--- NOTE | 2021-05-26 14:57 | IR_ITS ---
APPROVED REPORT Patient Location: Outpatient Marine Consultant: HOANG Gracia RT (R) PROCEDURES Left heart catheterization Left ventriculogram Selective coronary angiogram INDICATION Known coronary disease, Acute coronary syndrome Informed consent was obtained prior to the procedure. COMPLICATIONS NONE Estimated Blood Loss: LESS THAN 10 ML TECHNIQUE One percent lidocaine used to anesthetize the right anterior aspect of the wrist. The right radial artery was accessed via the Seldinger technique. A 6 Georgian sheath was placed in the right radial artery. 2.5 mg of verapamil, 800 mcg of nitroglycerin, 1mg Lidocaine and 5000 U Heparin were given through the arterial sheath. The Poppa catheter was also used to perform left heart catheterization, left ventriculogram and selective coronary angiogram. At the end of the procedure the sheath was removed good hemostasis was achieved using Traclet band, patient was transferred to the postop holding area in stable condition. ANGIOGRAPHIC RESULTS The left main artery Normal The left anterior descending artery Has proximal 10% luminal irregularities followed by a mid vessel concentric 30% stenosis followed by a concentric 30 to 40% stenosis at a 2.75 mm segment of the LAD. Distally there is a 30% concentric stenosis as the LAD approaches the apex The circumflex artery Is a large dominant vessel with mild vascular ectasia with no stenosis greater than 10% The right coronary artery Is a nondominant vessel with an anterior takeoff with stents in the mid and distal segment which are widely patent. The stents extend all the way down until marginal branch which is patent and has excellent transitioning into the distal vessel. The SYED ventriculogram reveals Preserved 60% The left ventricular end-diastolic pressure 10 mmHg IMPRESSION Coronary artery disease as described above all of which is nonflow limiting Preserved ejection fraction Normal left ventricular end-diastolic pressure PLAN 1. Medical management Electronically signed by : Irving Hill MD 05/26/2021 15:45:28
== END 2021-05-26 17:32 | disposition home or self-care (01) ==
LOC: LAB 14:36 → CATHLAB 14:39 → LAB 14:41
PROVIDERS: Internal Medicine Cardiovascular Disease; PCP Internal Medicine Adolescent Medicine; Visit Provider Internal Medicine
DX: I25.110 Atherosclerotic heart disease of native coronary artery with unstable angina pectoris (principal); E78.2 Mixed hyperlipidemia; I11.9 Hypertensive heart disease without heart failure; I48.0 Paroxysmal atrial fibrillation; Z95.5 Presence of coronary angioplasty implant and graft; R07.9 Chest pain, unspecified; Z20.822 Contact with and (suspected) exposure to COVID-19
CPT/HCPCS: 36415; 80048; 85025; 93458; 99152; C1725; C1760; C1769; C9803; J1644; Q9967; U0003; U0005

== ENCOUNTER → 2021-06-14 08:06 | Outpatient (CLI) | payer OTHER, SELFPAY ==
--- NOTE | 2021-06-14 08:07 | US_ITS ---
PROCEDURE: US GALLBLADDER CLINICAL INDICATION: chest pain COMPARISON: No exams were available for comparison FINDINGS: Pancreas: Pancreas is not well delineated due to overlying bowel gas. Liver: Unremarkable. There is appropriate direction of blood flow within a non dilated portal vein. Right kidney: Unremarkable appearing. No hydronephrosis. Gallbladder: No stones are evident. There is no gallbladder wall thickening. Common duct is normal in diameter. IMPRESSION: Negative gallbladder ultrasound. No stones evident. Dictated by: Eduard Adames MD 06/14/2021 17:25 Eduard Adames MD in [place] 06/14/2021 17:25
== END ==
PROVIDERS: PCP Internal Medicine Adolescent Medicine; Visit Provider Nurse Practitioner Family
DX: R07.89 Other chest pain (principal); I48.0 Paroxysmal atrial fibrillation; I25.10 Atherosclerotic heart disease of native coronary artery without angina pectoris; I11.9 Hypertensive heart disease without heart failure; E78.2 Mixed hyperlipidemia
CPT/HCPCS: 76705

== ENCOUNTER → 2023-08-30 15:05 | Outpatient (CLI) | payer BC, SELFPAY ==
--- NOTE | 2023-08-30 15:09 | XR_ITS ---
FINAL REPORT CLINICAL HISTORY: CELLULITIS OF LT THUMB,POSSIBLE METAL IN THUMB FINDINGS: Left thumb Three views were obtained. There is no acute fracture or dislocation. The joint spaces appear normal. There is an 8 mm density along the lateral aspect of the 1st metacarpophalangeal joint. There is no underlying bony erosion or periosteal reaction. IMPRESSION: Foreign body as above. No evidence of cellulitis. Reviewed, Interpreted and Dictated by Patrick Golden MD Transcribed by Karuna Alicia Authenticated and [facility]
== END ==
LOC: RAD 15:06
PROVIDERS: PCP Internal Medicine Adolescent Medicine; Visit Provider Physician Assistant
DX: L03.012 Cellulitis of left finger (principal)
CPT/HCPCS: 73140

== ENCOUNTER 2023-08-30 15:21 | Emergency (ER) | payer BC, SELFPAY ==
[2023-08-30 15:23] VITALS: BP 156/95; PULSE 90; RESP 20; TEMP 36.8; O2SAT 96; BMI 43.4
--- NOTE | 2023-08-30 16:15 | HMH.EDGENADL ---
Discharge Plan Disposition Patient Disposition: Home, Self-Care Prescriptions Prescriptions: New sulfamethoxazole-trimethoprim [Bactrim DS] 800-160 mg tablet 1 tab PO BID 7 Days Qty: 14 0RF No Action escitalopram oxalate 10 mg tablet 5 mg PO DAILY Patient Comments: TAKE 1 TABLET BY MOUTH ONCE DAILY azelastine 137 mcg (0.1 %) aerosol,spray 2 spray intranasal BID Qty: 30 2RF Rx Instructions: administer into each nostril levocetirizine [Xyzal] 5 mg tablet 5 mg PO DAILY Qty: 30 2RF aspirin [Adult Low Dose Aspirin] 81 mg tablet,delayed release (DR/EC) 81 mg PO DAILY atorvastatin 40 mg tablet 40 mg PO DAILY Qty: 90 3RF metoprolol succinate 25 mg tablet extended release 24 hr 25 mg PO DAILY Qty: 90 1RF losartan 50 mg tablet See Rx Instructions .ROUTE .COMPLEX Qty: 90 1RF Dose Instruction: TAKE 1 TABLET BY MOUTH ONCE DAILY FOR HIGH BLOOD PRESSURE Rx Instructions: TAKE 1 TABLET BY MOUTH ONCE DAILY FOR HIGH BLOOD PRESSURE Referrals Follow up/Referrals: Otoniel Asencio MD [Primary Care Provider] - See instructions Activity Restrictions/Add. Instructions Additional Instructions/Restrictions: At this time it was felt you are safe to be discharged home. If new or worsening symptoms please do not hesitate to return the emergency department. Please take antibiotics as prescribed and continue to follow-up with your hand surgeon as discussed. Clinical Impressions Clinical Impression: Foreign body hand Discharge ED Provider: Patrick Joe General Adult HPI General Chief complaint: Skin/Abscess/Foreign Body Stated complaint: AO [id number] piece of metal lt thumb Time Seen by Provider: 08/30/23 15:24 Mode of Arrival: Ambulatory Source of Information: Patient Limitations: No Limitations Description of Symptoms (Recalled from ER Triage Doc. by RN): pt was seen by pcp for metal foreign body in left thumb had xray done and was sent in antibiotics. pcp said to wait till next week to get it out but patient did not want to wait and let it fester over the weekend. ER MD aware History of Present Illness HPI narrative: Patient presents to the emergency department for evaluation of foreign body in his thumb. Patient was sitting hammers together last night when he had a piece of a hammer head go into the extensor aspect of his left thumb. Patient is right-handed. Location is his dorsal left thumb PIP joint. Wound was dermabonded at home. X-ray shows retained foreign body he presents here for continued evaluation. Tetanus is up-to-date and PCP prescribed him antibiotics. Related Data Home Medications Medication Instructions Recorded Confirmed aspirin 81 mg tablet,delayed 81 mg PO DAILY [facility] 10/07/17 08/21/23 release (Adult Low Dose Aspirin) escitalopram oxalate 10 mg tablet 5 mg PO DAILY 08/05/23 08/21/23 Previous Rx's Medication Instructions Recorded atorvastatin 40 mg tablet 40 mg PO DAILY Cholesterol #90 tabs 08/20/22 metoprolol succinate 25 mg 25 mg PO DAILY High blood pressure 02/01/23 tablet,extended release 24 hr #90 tabs losartan 50 mg tablet See Rx Instructions .Route 05/23/23 .COMPLEX #90 tabs azelastine 137 mcg (0.1 %) nasal 2 spray intranasal BID #30 mL 08/05/23 spray aerosol levocetirizine 5 mg tablet (Xyzal) 5 mg PO DAILY #30 tabs 08/05/23 sulfamethoxazole 800 1 tab PO BID 7 days #14 tabs 08/30/23 mg-trimethoprim 160 mg tablet (Bactrim DS) Allergies Allergy/AdvReac Type Severity Reaction Status Date / Time niacin Allergy Unknown I-RASH Verified 08/21/23 12:08 [From NIASPAN EXTENDED-RELEASE] [facility] Disclaimer: The information contained in this section may have been updated after the patient was seen, as this information can be updated by other users. Medical History (Updated 08/30/23 @ 16:24 by Patrick Joe MD) Angina pectoris Benign positional vertigo Dizziness HHD (hypertensive hear
[2023-08-30 17:14] VITALS: BP 157/80; PULSE 70; RESP 20; TEMP 36.7; O2SAT 97
== END 2023-08-30 17:16 | disposition home or self-care (01) ==
PROVIDERS: Emergency Provider Emergency Medicine; PCP Internal Medicine Adolescent Medicine
DX: S60.352A Superficial foreign body of left thumb, initial encounter (principal); I11.9 Hypertensive heart disease without heart failure; I20.9 Angina pectoris, unspecified; W45.8XXA Other foreign body or object entering through skin, initial encounter
CPT/HCPCS: 10120; 99283